=== PATIENT | female | born 1995 | race American Indian/Alaskan Native ===

== ENCOUNTER 2018-04-05 12:36 | Emergency (ER) | payer SELFPAY ==
[2018-04-05 12:36] VITALS: BMI 22.6
[2018-04-05 12:42] VITALS: BP 114/71; PULSE 100; RESP 20; TEMP 99.1; O2SAT 100
[2018-04-05] MEDS ORDERED: Lidocaine 5% Patch TD STA (14:11)
--- NOTE | 2018-04-05 14:30 | ED PDOC ---
HPI: Back Time Seen by Provider: 04/05/18 13:35 Chief Complaint (Nursing): Back Pain Chief Complaint (Provider): Back Pain History Per: Patient History/Exam Limitations: no limitations Onset/Duration Of Symptoms: Days (x 1 month ago ) Current Symptoms Are (Timing): Constant Exacerbating Factor(s): Movement Additional Complaint(s): Melody Dangelo is a 22 year old female with a past medical history of anemia, Crohn's disease, and gastritis, who presents to the emergency department complaining of constant lower back pain, onset x1 month. She reports her pain to be exacerbated by movement. Patient states she was seen twice before in [facility] for same symptoms. She denies having numbness, tingling, incontinence, hematuria, dysuria, abdomen pain, sustaining any trauma or any other medical complaints. PMD: No provider Past Medical History Reviewed: Historical Data, Nursing Documentation, Vital Signs Vital Signs: Last Vital Signs Temp 99.1 F 04/05/18 12:40 Pulse 100 H 04/05/18 12:40 Resp 20 04/05/18 12:40 BP 114/71 04/05/18 12:40 Pulse Ox 100 04/05/18 12:40 - Medical History PMH: Anemia, Crohn's Disease, Gastritis Denies: Diverticulitis, Gall Bladder Disease, HIV, Pancreatitis, Chronic Ki dney Disease - Surgical History Surgical History: No Surg Hx - Family History Family History: States: Unknown Family Hx - Immunization History Hx Tetanus Toxoid Vaccination: Yes Hx Influenza Vaccination: No Hx Pneumococcal Vaccination: No - Home Medications Home Medications: Ambulatory Orders Medication Instructions Recorded Mesalamine [Delzicol] 1.5 g PO DAILY 08/30/17 Dicyclomine [Bentyl] 20 mg PO Q6 PRN #20 tab 03/23/18 Tramadol HCl [Ultram] 50 mg PO BID PRN #10 tablet 04/05/18 - Allergies Allergies/Adverse Reactions: Allergies Allergy/AdvReac Type Severity Reaction Status Date / Time No Known Allergies Allergy Verified 04/05/18 12:39 Review of Systems ROS Statement: Except As Marked, All Systems Reviewed And Found Negative Gastrointestinal: Negative for: Abdominal Pain Genitourinary Female: Negative for: Dysuria, Incontinence, Hematuria Musculoskeletal: Positive for: Back Pain (constant lower back pain) Neurological: Negative for: Numbness, Other (tingling) Physical Exam - Reviewed Nursing Documentation Reviewed: Yes Vital Signs Reviewed: Yes - Physical Exam Appears: Positive for: In Acute Distress (minimal painful distress ) Head Exam: Positive for: ATRAUMATIC, NORMOCEPHALIC Skin: Positive for: Normal Color, Warm, Dry Eye Exam: Positive for: Normal appearance, EOMI ENT: Positive for: Normal ENT Inspection Neck: Positive for: Normal, Painless ROM, Supple Cardiovascular/Chest: Positive for: Regular Rate, Rhythm. Negative for: Murmur Respiratory: Positive for: Normal Breath Sounds. Negative for: Respiratory Distress Gastrointestinal/Abdominal: Positive for: Normal Exam, Bowel Sounds, Soft. Negative for: Tenderness Back: Positive for: Muscle Spasm (mild spasm in paralumbar area). Negative for: L CVA Tenderness, R CVA Tenderness, Vertebral Tenderness - Laboratory Results Urine POC: Negative - ECG O2 Sat by Pulse Oximetry: 100 (RA) Pulse Ox Interpretation: Normal - Radiology X-Ray: Interpreted by Me (LS spine x-ray) - Progress Condition: Re-examined, Improving,but remains with symptoms Medical Decision Making Medical Decision Making: Initial Time: 14:11 Initial Plan: --Lidoderm 1 ea TD --Ultram 50 mg PO --ED Urine (POC) --ED Urine Dipstick (POC) --X-ray LS Spine AP/LAT [RAD] Time: 15:53 X-Ray FINDINGS: BONES: Normal alignment. No listhesis. No fracture. DISC SPACES: Unremarkable. OTHER FINDINGS: None. IMPRESSION: Unremarkable radiographs of the lumbar spine. Scribe Attestation: Documented by Jose Robles, acting as a scribe for Kel Lal Provider Scribe Attestation: All medical record entries made by the Scribe were at my direction and personally dictated by me. I have reviewed the chart and agree that the record accurately reflects my personal performance of the history, physical exam, medical decision making, and the department course for this patient. I have also personally directed, reviewed, and agree with the discharge instructions and disposition. Disposition - Clinical Impression Clinical Impression: Acute back pain - Patient ED Disposition Is Patient to be Admitted: No - Disposition Referrals: [facility] [Outside] [facility] [Outside] [facility] [Outside] Disposition: Routine/Home Disposition Time: 15:29 Condition: STABLE Additional Instructions: MELODY DANGELO, thank you for letting us take care of you today. Your provider was Ag Richard III, DO and you were treated for BACK PAIN. The emergency medical care you received today was directed at your acute symptoms. If you were prescribed any medication, please fill it and take as directed. It may take several days for your symptoms to resolve. Return to the Emergency Department if your symptoms worsen, do not improve, or if you have any other problems. Please contact your doctor or call one of the physicians/clinics you have been referred to that are listed on the Patient Visit Information form that is included in your discharge packet. Bring any paperwork you were given at discharge with you along with any medications you are taking to your follow up visit. Our treatment cannot replace ongoing medical care by a primary care provider outside of the emergency department. [facility] care today. If you had an X-Ray or CT scan: A Radiologist will review the ED reading if any change in treatment is needed we will contact you. If you had a blood, urine, or wound culture: It will take several days for the results, if any change in treatment is needed we will contact you. If you had an STI test: It will take 48 hours for the results. Please call after 1 week if you have not heard back. Prescriptions: Tramadol HCl [Ultram] 50 mg PO BID PRN #10 tablet PRN Reason: Other Instructions: Low Back Pain (DC) Forms: [facility] (Turkish), [facility] ED School/Work Excuse Print Language: CZECH
[2018-04-05] MEDS ORDERED: Lidocaine 5% Patch TD ONE (14:38)
--- NOTE | 2018-04-05 15:59 | RAD ---
Date of service: 04/05/2018 PROCEDURE: Radiographs of the Lumbar Spine. HISTORY: pain COMPARISON: No prior. FINDINGS: BONES: Normal alignment. No listhesis. No fracture. DISC SPACES: Unremarkable. OTHER FINDINGS: None. IMPRESSION: Unremarkable radiographs of the lumbar spine.
== END 2018-04-05 15:47 | disposition home or self-care (01) ==
LOC: H.ER 12:36
DX: M54.9 Dorsalgia, unspecified (principal); D64.9 Anemia, unspecified; K50.90 Crohn's disease, unspecified, without complications